=== PATIENT | female | born 1990 | race Caucasian/White ===

== ENCOUNTER 2018-11-06 19:30 | Inpatient (IN) | payer BC ==
[~2018-11-06 19:30] MED LIST: Bupivacaine/Epinephrine 0.25% 30 ML VIAL ONE
[2018-11-06 20:07] VITALS: BMI 28.3
[2018-11-06 20:35] LABS: Hemoglobin 11.6 g/dL (12.0-16.0); Mean Corpuscular HGB CONC 34.7 g/dL (32.0-36.0); Mean Corpuscular Hemoglobin 31.5 pg (27.0-31.0); Mean Corpuscular Volume 90.8 fL (78.0-98.0); Mean Platelet Volume 7.7 fL (7.4-10.4); Platelet Count 191 thou/uL (130-400); RBC Distribution Width 11.5 % (11.5-14.5); Red Blood Cell (RBC) Count 3.68 mill/uL (4.20-5.40); White Blood Cell (WBC) Count 8.3 thou/uL (4.8-10.8)
[2018-11-06] MEDS ORDERED: Ibuprofen 800 MG TAB PO PRN (20:36)
[2018-11-06] MEDS ORDERED: HYDROcodone/Acetaminophen 5/325 mg Tablet PO PRN ×2 (20:36)
[2018-11-06] MEDS ORDERED: Lidocaine 1% (PF) 30 ML VIAL SC PRN (20:36)
[2018-11-06] MEDS ORDERED: NS / Oxytocin 40 units/1000ml 1,000 ML IV PRN (20:36)
[2018-11-06] MEDS ORDERED: Misoprostol 100 MCG TAB ONE (20:41)
[2018-11-06] MEDS ORDERED: NS w/ Oxytocin 10 units 500 ML IV SCH (20:45)
[2018-11-06 21:33] LABS: Syphilis Antibody Nonreactive (Nonreactive); Syphilis Antibody Index 0.03 S/CO (<1.00 Non-Reactive)
[2018-11-06] MEDS ORDERED: FLU VACC QS2019-20(6MOS UP)/PF 60 MCG/0.5 ML SYRINGE IM ONE (22:00)
[2018-11-06 23:12] LABS: Hep B Surf Ag Non-Reactive S/CO (NonReactive)
[2018-11-07] MEDS: Misoprostol 100 MCG TAB VAG SCH ×4 (00:08→19:45)
[2018-11-07] MEDS ORDERED: Misoprostol 100 MCG TAB VAG SCH (00:15)
[2018-11-07] MEDS ORDERED: Zolpidem Tartrate 5 MG TAB PO SCH (02:15)
[2018-11-07] MEDS ORDERED: Fentanyl 4 mcg/Bup 0.1% Cadd 100 ML ONE ×2 (07:57→14:54)
[2018-11-07] MEDS ORDERED: Misoprostol 200 MCG TAB ONE (07:59)
[2018-11-07] MEDS ORDERED: Acetaminophen 325 MG TAB PO PRN (09:28)
[2018-11-07] MEDS ORDERED: Promethazine HCl 25 MG/ML VIAL IM PRN (09:28)
[2018-11-07] MEDS ORDERED: Naloxone HCl 0.4 mg/ml Vial IVP PRN ×2 (09:28)
[2018-11-07] MEDS ORDERED: Lactated Ringer's 500 ML IV PRN (09:28)
[2018-11-07] MEDS ORDERED: Ondansetron PF 4 MG/2 ML Vial IVP PRN ×2 (09:28→18:09)
[2018-11-07] MEDS ORDERED: ePHEDrine/0.9% NaCl/PF SYRINGE 50 mg/10 ml SLOW IVP PRN (09:28)
[2018-11-07] MEDS ORDERED: diphenhydrAMINE 50 MG/ML VIAL IVP PRN (09:28)
[2018-11-07] MEDS ORDERED: Fentanyl 4 mcg/Bupivacaine 0.1% Cassette 100 ML EPIDURAL SCH (09:30)
[2018-11-07] MEDS ORDERED: Communication Order-Pharmacy FS SCH (09:30)
[2018-11-07] MEDS ORDERED: NS / Oxytocin 40 units/1000ml 1,000 ML ONE (16:05)
[2018-11-07] MEDS ORDERED: Lidocaine 1% (PF) 30 ML VIAL ONE (16:05)
[2018-11-07] MEDS ORDERED: Adacel (T-DAP) 0.5 ML SYRINGE IM ONE (18:09)
[2018-11-07] MEDS ORDERED: Preparation H Ointment 28 GM TUBE PR PRN (18:09)
[2018-11-07] MEDS ORDERED: Benzocaine-Menthol 82.5 ML CAN TOP PRN (18:09)
[2018-11-07] MEDS ORDERED: hydrALAZINE 20 MG/ML VIAL SLOW IVP PRN (18:09)
[2018-11-07] MEDS ORDERED: Bisacodyl 10 MG SUPP PR PRN (18:09)
[2018-11-07] MEDS ORDERED: diphenhydrAMINE 25 MG CAP PO PRN (18:09)
[2018-11-07] MEDS ORDERED: Lanolin Ointment 7 GM TUBE TOP PRN (18:09)
[2018-11-07] MEDS ORDERED: Milk Of Magnesia 30 ML UDCUP PO PRN (18:09)
[2018-11-07] MEDS ORDERED: NS / Oxytocin 40 units/1000ml 1,000 ML IV SCH (18:15)
[2018-11-07] MEDS: Lactated Ringer's 1,000 ML IV SCH (19:44)
[2018-11-08] MEDS: Docusate Calcium (SURFAK) 240 MG CAP PO SCH ×3 (00:56→21:59)
[2018-11-08] MEDS: Ibuprofen 800 MG TAB PO SCH ×4 (00:57→21:59)
[2018-11-08] MEDS: Zolpidem Tartrate 5 MG TAB PO SCH ×2 (00:58→22:02)
[2018-11-08] MEDS: Misoprostol 100 MCG TAB VAG SCH ×5 (01:02→21:55)
[2018-11-08] MEDS ORDERED: HYDROcodone/Acetaminophen 5/325 mg Tablet PO PRN ×2 (01:10→01:11)
[2018-11-08] MEDS: Lactated Ringer's 1,000 ML IV SCH ×3 (03:24→21:53)
[2018-11-08] MEDS: Prenatal Vitamin 1 TAB PO SCH (09:48)
[2018-11-08] MEDS: Ferrous Sulfate 325 MG TAB PO SCH ×2 (09:49→16:45)
[2018-11-09] MEDS: Lactated Ringer's 1,000 ML IV SCH (02:01)
[2018-11-09] MEDS: Ibuprofen 800 MG TAB PO SCH (05:47)
[2018-11-09 08:47] VITALS: BP 130/78; TEMP 98.7
[2018-11-09] MEDS: Ferrous Sulfate 325 MG TAB PO SCH (10:07)
[2018-11-09] MEDS: Prenatal Vitamin 1 TAB PO SCH (10:08)
[2018-11-09] MEDS: Docusate Calcium (SURFAK) 240 MG CAP PO SCH (10:09)
== END 2018-11-09 12:52 | disposition home or self-care (01) | DRG 807 ==
LOC: L&D 19:36 → 3SE 11-07 21:16
PROVIDERS: ADMIT Obstetrics & Gynecology; ATTEND Obstetrics & Gynecology
PROC: 10E0XZZ Delivery of Products of Conception, External Approach (ICD-10-PCS; principal; 2018-11-07)
PROC: 10907ZC Drainage of Amniotic Fluid, Therapeutic from Products of Conception, Via Natural or Artificial Opening (ICD-10-PCS; 2018-11-07)
PROC: 3E0P7VZ Introduction of Hormone into Female Reproductive, Via Natural or Artificial Opening (ICD-10-PCS; 2018-11-07)
PROC: 3E033VJ Introduction of Other Hormone into Peripheral Vein, Percutaneous Approach (ICD-10-PCS; 2018-11-07)
PROC: 0HQ9XZZ Repair Perineum Skin, External Approach (ICD-10-PCS; 2018-11-07)
PROC: 3E02340 Introduction of Influenza Vaccine into Muscle, Percutaneous Approach (ICD-10-PCS; 2018-11-07)
DX: O70.0 First degree perineal laceration during delivery (principal); Z37.0 Single live birth; Z3A.39 39 weeks gestation of pregnancy; Z23 Encounter for immunization
CPT/HCPCS: 36415; 85027; 86780; 86850; 86900; 86901; 87340; J2001; J2590